=== PATIENT | male | born 1960 | race Caucasian/White ===

== ENCOUNTER 2020-08-27 15:08 | Observation (INO) | payer BC ==
[~2020-08-27 15:08] MED LIST: AMBIEN 10MG10 MG PO; KLONOPIN0.5 MG PO
[2020-08-27] MEDS ORDERED: MELATIN3 MG PO (15:17)
[2020-08-27 15:44] LABS: BASO # 0.1 (0.02-0.10); EOS # 0.2 (0.04-0.40); EOS % 2.3 % (0.0-4.0); HEMATOCRIT 46.4 % (42.0-52.0); HEMOGLOBIN 16.1 g/dL (13.5-18.0); MEAN CELL VOLUME 88 fl (78-100); MEAN CORPUSCULAR HEMOGLOBIN 30 pg (27-31); MEAN CORPUSCULAR HGB CONC 35 g/dL (33-37); MEAN PLATELET VOLUME 11.4 fl (7.4-10.4); MONO # 0.6 (0.20-0.80); NEU # 3.8 (1.40-6.50); PLATELET COUNT 225 K/mm3 (130-400); RED BLOOD COUNT 5.29 M/mm3 (4.20-5.60); RED CELL DISTRIBUTION WIDTH 13.1 % (11.5-14.5); WHITE BLOOD COUNT 6.6 K/mm3 (4.8-10.8)
[2020-08-27 15:53] LABS: ALBUMIN 4.5 g/dL (3.5-5.0)
[2020-08-27 15:55] LABS: CALCIUM 9.6 mg/dL (8.3-10.5)
[2020-08-27 15:56] LABS: TOTAL PROTEIN 7.2 g/dL (6.4-8.3)
[2020-08-27 15:57] LABS: URINE APPEARANCE CLOUDY; URINE COLOR DK YELLOW/RED
[2020-08-27 15:58] LABS: TOTAL BILIRUBIN 0.8 mg/dL (0.2-1.2)
[2020-08-27 15:58] LABS: URINE BILIRUBIN NEGATIVE (NEGATIVE); URINE BLOOD 250 ery/uL (NEGATIVE); URINE GLUCOSE NEGATIVE (NEGATIVE); URINE KETONE 1+ (NEGATIVE); URINE LEUKOCYTE ESTERASE TRACE (NEGATIVE); URINE MUCUS PRESENT (NOT PRESENT); URINE NITRATE NEGATIVE (NEGATIVE); URINE PROTEIN(semi-quant) 1+ mg/dL (NEGATIVE); URINE UROBILINOGEN NORMAL (NORMAL)
[2020-08-27 16:03] LABS: LIPASE 28 U/L (8-78)
[2020-08-27 22:29] VITALS: BP 114/84
[2020-08-28 01:51] VITALS: BP 93/53
[2020-08-28 05:46] VITALS: BP 111/61
== END 2020-08-28 09:05 | disposition short-term general hospital (02) ==
LOC: ED 15:08 → MED/SURG 20:56 → ED 20:56 → MED/SURG 21:00
PROVIDERS: ADMIT Family Medicine
DX: N13.6 Pyonephrosis (principal)
CPT/HCPCS: G0378; J0696; J1885; J2270; J3010; J7030; Q9967